=== PATIENT | male | born 1950 | race Asian ===

== ENCOUNTER 2016-05-16 14:42 | Inpatient (IN) | payer MEDICARE ==
[~2016-05-16] VITALS: Ht 177.8 cm; Wt 55.5 kg
[2016-05-16] MEDS ORDERED: ONDANSETRON HCL 4 MG/2 ML VIAL IVP ONE (16:15)
[2016-05-16] MEDS ORDERED: SODIUM CHLORIDE 0.9% 1,000 ML IV ONE ×2 (16:15→19:15)
[2016-05-16] MEDS ORDERED: MORPHINE SULFATE 4 MG/ML SYRINGE IVP ONE (16:15)
[2016-05-16] MEDS ORDERED: PANTOPRAZOLE SODIUM 40 MG/VIAL IVP ONE (16:15)
[2016-05-16 16:38] LABS: CALCIUM, TOTAL 8.9 mg/dL (8.8-10.5); CREATININE 1.45 mg/dL (0.60-1.30)
[2016-05-16 16:43] LABS: EOSINOPHILS % (AUTO) 0.1 % (1.0-6.0); HEMATOCRIT 44.8 % (41-53); HEMOGLOBIN 14.7 g/dL (13.5-17.5); LYMPHOCYTES # (AUTO) 0.6 K/uL (1.0-4.8); LYMPHOCYTES % (AUTO) 5.5 % (22.0-44.0); MEAN CORPUSCULAR HEMOGLOBIN 32.9 pg (26.0-34.0); MEAN CORPUSCULAR HGB CONC 32.8 G/dL (31.0-37.0); MEAN CORPUSCULAR VOLUME 100 fL (80-100); MONOCYTES % (AUTO) 0.2 % (2.0-9.0); NEUTROPHILS # (AUTO) 10.7 K/uL (1.8-7.7); PLATELET COUNT (AUTO) 246 K/uL (150-450); RED BLOOD CELL COUNT(AUTO) 4.47 MIL/uL (4.50-5.90); RED CELL DISTRIBUTION WIDTH 12.6 % (11.5-14.5); WHITE BLOOD COUNT (AUTO) 11.3 K/uL (4.5-11.0)
[2016-05-16 16:44] LABS: ALBUMIN 4.2 g/dL (3.4-5.0); BILIRUBIN,TOTAL 1.4 mg/dL (0.1-1.0); NEUTROPHILS % (AUTO) 94.2 % (40.0-70.0); TOTAL PROTEIN, SERUM 7.8 g/dL (6.4-8.2)
[2016-05-16 16:54] LABS: LACTIC ACID 1.4 mmol/L (0.4-2.0)
[2016-05-16 18:44] LABS: GLUCOSE, URINE (UA) NEGATIVE (NEGATIVE); KETONES,URINE 15 mg/dL (NEGATIVE); PROTEIN,URINE TRACE (NEGATIVE)
[2016-05-16] MEDS ORDERED: MetroNIDAZOLE 500 MG/NACL 100 ML IV ONE (19:00)
[2016-05-16] MEDS ORDERED: CIPROFLOXACIN 400 MG/D5% WATER 200 ML IV ONE (19:00)
[2016-05-16 19:02] LABS: APPEARANCE,URINE HAZY (CLEAR)
[2016-05-16 19:03] LABS: ADD UA MICROSCOPIC YES; LEUKOCYTE ESTERASE ,URINE SMALL (NEGATIVE); OCCULT BLOOD,URINE MODERATE (NEGATIVE); RBC,URINE 51-100 /HPF (0-2); SQUAMOUS EPITHELIAL CELL,UR Rare /LPF (None Seen)
[2016-05-16] MEDS ORDERED: 0.9% SODIUM CHLORIDE 10 ML SYRINGE IVP PRN (19:15)
[2016-05-16] MEDS ORDERED: ACETAMINOPHEN 325 MG TABLET PO PRN (19:15)
[2016-05-16] MEDS ORDERED: MORPHINE SULFATE 4 MG/ML SYRINGE IVP PRN (19:15)
[2016-05-16] MEDS ORDERED: ONDANSETRON HCL 4 MG/2 ML VIAL IVP PRN (19:15)
[2016-05-16] MEDS ORDERED: BISACODYL 10 MG RECTAL RECTAL SUPPOSITORY PR PRN (21:00)
[2016-05-16] MEDS ORDERED: ALBUTEROL SULFATE 2.5 MG/0.5 ML NEB SOLUTION NEB PRN (21:00)
[2016-05-16] MEDS ORDERED: MAGNESIUM HYDROXIDE SUSPENSION 30 ML UDCUP PO PRN (21:00)
[2016-05-16] MEDS: DOCUSATE SODIUM 100 MG CAPSULE PO SCH (21:00)
[2016-05-16 21:06] VITALS: BP 103/65
[2016-05-16] MEDS ORDERED: DEXTROSE 5%-0.45% SODIUM CHL 1,000 ML IV SCH (21:15)
[2016-05-16] MEDS: MORPHINE SULFATE 2 MG/ML SYRINGE IVP PRN (21:39)
[2016-05-16] MEDS: HEPARIN SODIUM,PORCINE 5,000 UNITS/ML VIAL SQ SCH (21:39)
[2016-05-16] MEDS: PIPERACILLIN/TAZO 3.375 GM/D5W 50 ML IV SCH (22:08)
[2016-05-17] VITALS (13 sets, daily range): BP systolic 80–128; BP diastolic 44–69
[2016-05-17] MEDS: MORPHINE SULFATE 2 MG/ML SYRINGE IVP PRN ×2 (03:21→14:53)
[2016-05-17] MEDS: PIPERACILLIN/TAZO 3.375 GM/D5W 50 ML IV SCH (04:08)
[2016-05-17 06:31] LABS: EOSINOPHILS % (AUTO) 0 % (1.0-6.0); HEMATOCRIT 44.6 % (41-53); HEMOGLOBIN 14.7 g/dL (13.5-17.5); LYMPHOCYTES # (AUTO) 0.8 K/uL (1.0-4.8); LYMPHOCYTES % (AUTO) 3.2 % (22.0-44.0); MEAN CORPUSCULAR HEMOGLOBIN 33.5 pg (26.0-34.0); MEAN CORPUSCULAR HGB CONC 32.9 G/dL (31.0-37.0); MEAN CORPUSCULAR VOLUME 102 fL (80-100); MONOCYTES % (AUTO) 3.9 % (2.0-9.0); NEUTROPHILS # (AUTO) 22.8 K/uL (1.8-7.7); PLATELET COUNT (AUTO) 279 K/uL (150-450); RED BLOOD CELL COUNT(AUTO) 4.38 MIL/uL (4.50-5.90); RED CELL DISTRIBUTION WIDTH 13.3 % (11.5-14.5); WHITE BLOOD COUNT (AUTO) 24.5 K/uL (4.5-11.0)
[2016-05-17 06:33] LABS: CALCIUM, TOTAL 7.9 mg/dL (8.8-10.5); CREATININE 1.73 mg/dL (0.60-1.30); POTASSIUM 5.3 mmol/L (3.5-5.1)
[2016-05-17 07:01] LABS: NEUTROPHILS % (AUTO) 92.9 % (40.0-70.0)
[2016-05-17 07:50] LABS: RBC MORPHOLOGY COMMENT ABNORMAL RBC MORPH
[2016-05-17] MEDS: DOCUSATE SODIUM 100 MG CAPSULE PO SCH ×2 (08:18→21:00)
[2016-05-17] MEDS: PANTOPRAZOLE SODIUM 40 MG/VIAL IVP SCH (08:19)
[2016-05-17] MEDS: HEPARIN SODIUM,PORCINE 5,000 UNITS/ML VIAL SQ SCH ×2 (08:20→21:00)
[2016-05-17] MEDS ORDERED: PIPERACILLIN SODIUM/TAZOBACTAM 2.25 GM in DEXTROSE 5%-WATER 50 ML IV SCH (10:00)
[2016-05-17] MEDS: ACETAMINOPHEN 325 MG TABLET PO PRN ×2 (10:39→19:44)
[2016-05-17] MEDS: POTASSIUM CHL 20 MEQ/D5-0.45NS 1,000 ML IV SCH (14:50)
[2016-05-17] MEDS: LEVOFLOXACIN 750 MG/D5% WATER 150 ML IV SCH (14:53)
[2016-05-17] MEDS: MetroNIDAZOLE 500 MG TABLET PO SCH ×2 (16:16→21:00)
[2016-05-17 22:04] LABS: OCCULT BLOOD STOOL SINGLE ONLY POSITIVE (NEGATIVE)
[2016-05-18] MEDS ORDERED: SODIUM CHLORIDE 0.9% 250 ML IV SCH (00:19)
[2016-05-18] MEDS ORDERED: SODIUM CHLORIDE 0.9% 250 ML IV ONE (00:30)
[2016-05-18] MEDS: POTASSIUM CHL 20 MEQ/D5-0.45NS 1,000 ML IV SCH (01:46)
[2016-05-18 01:54] VITALS: BP 108/68
[2016-05-18 06:54] LABS: BASOPHILS % (AUTO) 0.4 % (0.0-2.0); EOSINOPHILS % (AUTO) 0.8 % (1.0-6.0); HEMATOCRIT 34.2 % (41-53); HEMOGLOBIN 11.4 g/dL (13.5-17.5); LYMPHOCYTES # (AUTO) 1.4 K/uL (1.0-4.8); LYMPHOCYTES % (AUTO) 9.7 % (22.0-44.0); MEAN CORPUSCULAR HEMOGLOBIN 33.9 pg (26.0-34.0); MEAN CORPUSCULAR HGB CONC 33.3 G/dL (31.0-37.0); MEAN CORPUSCULAR VOLUME 102 fL (80-100); MONOCYTES # (AUTO) 0.8 K/uL (0.1-1.0); MONOCYTES % (AUTO) 5.6 % (2.0-9.0); NEUTROPHILS # (AUTO) 12.1 K/uL (1.8-7.7); NEUTROPHILS % (AUTO) 83.5 % (40.0-70.0); PLATELET COUNT (AUTO) 216 K/uL (150-450); RED BLOOD CELL COUNT(AUTO) 3.36 MIL/uL (4.50-5.90); RED CELL DISTRIBUTION WIDTH 12.7 % (11.5-14.5); WHITE BLOOD COUNT (AUTO) 14.5 K/uL (4.5-11.0)
[2016-05-18 07:12] LABS: ALANINE AMINOTRANSFERASE 17 U/L (12-78); ALBUMIN 2.8 g/dL (3.4-5.0); ANION GAP 5 mmol/L (8-16); ASPARTATE AMINOTRANSFERASE 18 U/L (15-37); BILIRUBIN,TOTAL 0.6 mg/dL (0.1-1.0); CALCIUM, TOTAL 8.1 mg/dL (8.8-10.5); CARBON DIOXIDE 30 mmol/L (22-29); CHLORIDE 106 mmol/L (98-107); CREATININE 1.01 mg/dL (0.60-1.30); GLOMERULAR FILTR. RATE CALC > 60 mL/min (>60); POTASSIUM 4.5 mmol/L (3.5-5.1); SODIUM SERUM 141 mmol/L (136-145); TOTAL PROTEIN, SERUM 5.6 g/dL (6.4-8.2); UREA NITROGEN, BLOOD 12 mg/dL (7-18)
[2016-05-18 08:05] VITALS: BP 102/56
[2016-05-18] MEDS: MetroNIDAZOLE 500 MG TABLET PO SCH ×3 (08:49→20:25)
[2016-05-18] MEDS: HEPARIN SODIUM,PORCINE 5,000 UNITS/ML VIAL SQ SCH ×2 (08:50→20:25)
[2016-05-18] MEDS: DOCUSATE SODIUM 100 MG CAPSULE PO SCH ×2 (08:50→20:29)
[2016-05-18] MEDS: PANTOPRAZOLE SODIUM 40 MG/VIAL IVP SCH (08:51)
[2016-05-18] MEDS: ACETAMINOPHEN 325 MG TABLET PO PRN (09:16)
[2016-05-18 11:20] VITALS: BP 115/62
[2016-05-18] MEDS ORDERED: DEXTROSE 5%-0.45% SODIUM CHL 1,000 ML IV SCH (12:00)
[2016-05-18 15:19] VITALS: BP 107/56
[2016-05-18] MEDS: LEVOFLOXACIN 750 MG/D5% WATER 150 ML IV SCH (15:19)
[2016-05-18 19:24] VITALS: BP 95/61
[2016-05-18 23:44] VITALS: BP 113/63
[2016-05-19 04:34] VITALS: BP 112/60
[2016-05-19] MEDS: ACETAMINOPHEN 325 MG TABLET PO PRN (05:58)
[2016-05-19 06:26] LABS: BASOPHILS # (AUTO) 0.06 K/uL (0.00-0.20); BASOPHILS % (AUTO) 0.5 % (0.0-2.0); EOSINOPHILS # (AUTO) 0.24 K/uL (0.00-0.70); EOSINOPHILS % (AUTO) 2.07 % (1.0-6.0); HEMATOCRIT 33.7 % (41-53); HEMOGLOBIN 11.3 g/dL (13.5-17.5); LYMPHOCYTES # (AUTO) 2.2 K/uL (1.0-4.8); LYMPHOCYTES % (AUTO) 19.1 % (22.0-44.0); MEAN CORPUSCULAR HEMOGLOBIN 33.8 pg (26.0-34.0); MEAN CORPUSCULAR HGB CONC 33.6 G/dL (31.0-37.0); MEAN CORPUSCULAR VOLUME 101 fL (80-100); MONOCYTES # (AUTO) 0.9 K/uL (0.1-1.0); MONOCYTES % (AUTO) 7.9 % (2.0-9.0); NEUTROPHILS # (AUTO) 8.2 K/uL (1.8-7.7); NEUTROPHILS % (AUTO) 70.5 % (40.0-70.0); PLATELET COUNT (AUTO) 226 K/uL (150-450); RED BLOOD CELL COUNT(AUTO) 3.35 MIL/uL (4.50-5.90); RED CELL DISTRIBUTION WIDTH 12.6 % (11.5-14.5); WHITE BLOOD COUNT (AUTO) 11.7 K/uL (4.5-11.0)
[2016-05-19 07:02] LABS: ALANINE AMINOTRANSFERASE 13 U/L (12-78); ALBUMIN 2.8 g/dL (3.4-5.0); ANION GAP 6 mmol/L (8-16); ASPARTATE AMINOTRANSFERASE 14 U/L (15-37); BILIRUBIN,TOTAL 0.6 mg/dL (0.1-1.0); CALCIUM, TOTAL 8.4 mg/dL (8.8-10.5); CARBON DIOXIDE 30 mmol/L (22-29); CHLORIDE 107 mmol/L (98-107); CREATININE 1.11 mg/dL (0.60-1.30); GLOMERULAR FILTR. RATE CALC > 60 mL/min (>60); POTASSIUM 3.9 mmol/L (3.5-5.1); SODIUM SERUM 143 mmol/L (136-145); TOTAL PROTEIN, SERUM 5.8 g/dL (6.4-8.2); UREA NITROGEN, BLOOD 10 mg/dL (7-18)
[2016-05-19 07:51] VITALS: BP 119/71
[2016-05-19] MEDS: MetroNIDAZOLE 500 MG TABLET PO SCH ×3 (09:08→20:18)
[2016-05-19] MEDS: DOCUSATE SODIUM 100 MG CAPSULE PO SCH ×2 (09:08→21:00)
[2016-05-19] MEDS: HEPARIN SODIUM,PORCINE 5,000 UNITS/ML VIAL SQ SCH (09:08)
[2016-05-19] MEDS: PANTOPRAZOLE SODIUM 40 MG/VIAL IVP SCH (09:09)
[2016-05-19 11:06] LABS: RBC MORPHOLOGY COMMENT ABNORMAL RBC MORPH
[2016-05-19 11:33] VITALS: BP 98/73
[2016-05-19] MEDS: LEVOFLOXACIN 750 MG/D5% WATER 150 ML IV SCH (12:34)
[2016-05-19 15:45] VITALS: BP 108/71
[2016-05-19 19:34] VITALS: BP 105/66
[2016-05-19] MEDS: MORPHINE SULFATE 2 MG/ML SYRINGE IVP PRN (21:00)
[2016-05-19 23:32] VITALS: BP 94/52
[2016-05-20 05:28] VITALS: BP 123/58
[2016-05-20 06:30] LABS: BASOPHILS % (AUTO) 0.9 % (0.0-2.0); EOSINOPHILS % (AUTO) 4.2 % (1.0-6.0); HEMATOCRIT 34.7 % (41-53); HEMOGLOBIN 11.3 g/dL (13.5-17.5); LYMPHOCYTES # (AUTO) 1.9 K/uL (1.0-4.8); LYMPHOCYTES % (AUTO) 25.7 % (22.0-44.0); MEAN CORPUSCULAR HEMOGLOBIN 33.4 pg (26.0-34.0); MEAN CORPUSCULAR HGB CONC 32.7 G/dL (31.0-37.0); MEAN CORPUSCULAR VOLUME 102 fL (80-100); MONOCYTES # (AUTO) 0.7 K/uL (0.1-1.0); MONOCYTES % (AUTO) 9.7 % (2.0-9.0); NEUTROPHILS # (AUTO) 4.4 K/uL (1.8-7.7); NEUTROPHILS % (AUTO) 59.5 % (40.0-70.0); PLATELET COUNT (AUTO) 255 K/uL (150-450); RED CELL DISTRIBUTION WIDTH 12.7 % (11.5-14.5); WHITE BLOOD COUNT (AUTO) 7.5 K/uL (4.5-11.0)
[2016-05-20 06:53] LABS: RBC MORPHOLOGY COMMENT ABNORMAL RBC MORPH
[2016-05-20 07:03] LABS: ALANINE AMINOTRANSFERASE 19 U/L (12-78); ALBUMIN 2.9 g/dL (3.4-5.0); ANION GAP 5 mmol/L (8-16); ASPARTATE AMINOTRANSFERASE 23 U/L (15-37); BILIRUBIN,TOTAL 0.6 mg/dL (0.1-1.0); CALCIUM, TOTAL 8.4 mg/dL (8.8-10.5); CARBON DIOXIDE 30 mmol/L (22-29); CHLORIDE 104 mmol/L (98-107); CREATININE 1.04 mg/dL (0.60-1.30); GLOMERULAR FILTR. RATE CALC > 60 mL/min (>60); SODIUM SERUM 139 mmol/L (136-145); UREA NITROGEN, BLOOD 9 mg/dL (7-18)
[2016-05-20 07:11] VITALS: BP 113/74
[2016-05-20] MEDS: ACETAMINOPHEN 325 MG TABLET PO PRN (08:00)
[2016-05-20] MEDS: PANTOPRAZOLE SODIUM 40 MG/VIAL IVP SCH (08:00)
[2016-05-20] MEDS: MetroNIDAZOLE 500 MG TABLET PO SCH (08:01)
[2016-05-20] MEDS: DOCUSATE SODIUM 100 MG CAPSULE PO SCH (08:01)
[2016-05-20] MEDS ORDERED: CIPR-278 PO (09:40)
[2016-05-20] MEDS ORDERED: METR500 PO (09:40)
[2016-05-20 11:45] VITALS: BP 120/78
== END 2016-05-20 12:31 | disposition home or self-care (01) | DRG 871 ==
LOC: EMS 14:44 → 6N 19:48
PROVIDERS: ADMIT Internal Medicine; ATTEND Internal Medicine
DX: A41.9 Sepsis, unspecified organism (principal); E43 Unspecified severe protein-calorie malnutrition; N17.9 Acute kidney failure, unspecified; N39.0 Urinary tract infection, site not specified; A09 Infectious gastroenteritis and colitis, unspecified; K92.2 Gastrointestinal hemorrhage, unspecified; Z68.1 Body mass index [BMI] 19.9 or less, adult; E86.0 Dehydration; D64.9 Anemia, unspecified; E55.9 Vitamin D deficiency, unspecified; I48.0 Paroxysmal atrial fibrillation; R62.7 Adult failure to thrive; Z98.890 Other specified postprocedural states; Z87.19 Personal history of other diseases of the digestive system; Z87.81 Personal history of (healed) traumatic fracture
CPT/HCPCS: 74176; 82271; 82306; 83605; 87040; 87045; 87086; 87324; 87449; 89055; 93005; 96361; 96365; 96374; 96375; 97162; 99285; C9113; J0744; J1644; J1956; J2270; J2405; J2543; J3480; J3490; J7030; J7050; J7060